=== PATIENT | female | born 1990 | race Caucasian/White ===

== ENCOUNTER 2021-08-30 11:27 | Outpatient (CLI) | payer OTHER, SELFPAY | END 2021-08-30 11:28 | disposition home or self-care (01) | LOC: LAB 11:27 | PROVIDERS: PCP Family Medicine; Visit Provider Family Medicine | DX: E03.9 Hypothyroidism, unspecified (principal) | CPT/HCPCS: 36415; 84443 ==

== ENCOUNTER 2022-02-13 11:49 | Outpatient (CLI) | payer OTHER, SELFPAY ==
[2022-02-13 13:43] LABS: Hemoglobin* 13.8 gm/dL (12.0-16.0)
[2022-02-13 14:05] LABS: Free T4 Free Thyroxine* 0.83 ng/dL (0.70-1.85)
== END 2022-02-13 11:50 | disposition home or self-care (01) ==
PROVIDERS: PCP Family Medicine; Visit Provider Family Medicine
DX: R53.83 Other fatigue (principal); E03.9 Hypothyroidism, unspecified
CPT/HCPCS: 84439; 84443; 85018

== ENCOUNTER 2022-03-13 11:17 | Outpatient (CLI) | payer OTHER, SELFPAY | END 2022-03-13 11:18 | disposition home or self-care (01) | PROVIDERS: PCP Family Medicine; Visit Provider Obstetrics & Gynecology | DX: E03.9 Hypothyroidism, unspecified (principal); Z12.4 Encounter for screening for malignant neoplasm of cervix | CPT/HCPCS: 84443 ==

== ENCOUNTER 2022-04-01 13:58 | Outpatient (CLI) | payer OTHER, SELFPAY ==
--- NOTE | 2022-04-01 14:00 | CRLHL7_ITS ---
For Patients: As a result of the Century Cures Act, medical imaging exams and procedure reports are released immediately into your electronic medical record. You may view this report before your referring provider. If you have questions, please contact your health care provider. INDICATION: Pelvic pain and pressure TECHNIQUE: Ultrasound pelvis transabdominal and transvaginal for better assessment or to better visualize the endometrium. Real time sonographic images with Spectral and color Doppler imaging of the ovaries were obtained. COMPARISON: None FINDINGS: Uterus: 8.4 centimeter x 3.3 centimeter x 5.0 centimeter cm. Normal echotexture of the myometrium. No masses. Endometrium: Transvaginal imaging was performed to better evaluate the endometrium. 3 millimeter in thickness. No sign of endometrial mass or fluid. Right ovary: 2.6 centimeter x 1.8 centimeter x 2.4 centimeter. No ovarian or adnexal masses. Normal arterial and venous blood flow. Left ovary: 4.0 centimeter x 1.8 centimeter x 2.1 centimeter. No ovarian or adnexal masses. Normal arterial and venous blood flow. Cul-de-sac: No significant free fluid. IMPRESSION: Unremarkable pelvic ultrasound. Dictated by Marquez Puckett MD @ 04/02/2022 8:29:35 AM (Electronically Signed)
== END 2022-04-01 13:59 | disposition home or self-care (01) ==
LOC: US 13:58
PROVIDERS: PCP Family Medicine; Visit Provider Obstetrics & Gynecology
DX: R10.2 Pelvic and perineal pain (principal); N92.0 Excessive and frequent menstruation with regular cycle
CPT/HCPCS: 76830; 76856

== ENCOUNTER 2022-06-25 09:51 | Outpatient (CLI) | payer OTHER, SELFPAY | END 2022-06-25 09:52 | disposition home or self-care (01) | LOC: NFLDREF 15:45 | PROVIDERS: PCP Family Medicine; Referring Provider Family Medicine; Visit Provider Family Medicine | DX: E03.9 Hypothyroidism, unspecified (principal) | CPT/HCPCS: 84443 ==

== ENCOUNTER 2022-12-20 09:30 | Outpatient (CLI) | payer MEDICARE, SELFPAY | END 2022-12-20 09:31 | disposition home or self-care (01) | LOC: NFLDREF 09:31 | PROVIDERS: PCP Family Medicine; Visit Provider Family Medicine | DX: E03.9 Hypothyroidism, unspecified (principal); N92.0 Excessive and frequent menstruation with regular cycle | CPT/HCPCS: 84439; 84443 ==

== ENCOUNTER 2023-03-13 11:15 | Outpatient (CLI) | payer MEDICARE, SELFPAY | END 2023-03-13 11:16 | disposition home or self-care (01) | LOC: NFLDREF 03-14 06:55 | PROVIDERS: PCP Family Medicine; Referring Provider Family Medicine; Visit Provider Family Medicine | DX: E03.9 Hypothyroidism, unspecified (principal) | CPT/HCPCS: 84443 ==

== ENCOUNTER 2023-09-16 15:12 | Outpatient (CLI) | payer MEDICARE, SELFPAY | END 2023-09-16 15:13 | disposition home or self-care (01) | PROVIDERS: PCP Family Medicine; Visit Provider Family Medicine | DX: E06.3 Autoimmune thyroiditis (principal); F43.21 Adjustment disorder with depressed mood | CPT/HCPCS: 80048; 84439; 84443; 85025; 86376 ==

== ENCOUNTER 2024-03-12 11:46 | Outpatient (CLI) | payer BC, SELFPAY | END 2024-03-12 11:47 | disposition home or self-care (01) | PROVIDERS: PCP Family Medicine; Visit Provider Family Medicine | DX: E06.3 Autoimmune thyroiditis (principal); Z01.818 Encounter for other preprocedural examination | CPT/HCPCS: 80048; 84439; 84443; 85025 ==

== ENCOUNTER 2024-10-01 08:14 | Outpatient (CLI) | payer BC, SELFPAY | END 2024-10-01 08:15 | disposition home or self-care (01) | LOC: NFLDREF 08:14 | PROVIDERS: PCP Family Medicine; Visit Provider Family Medicine | DX: E06.3 Autoimmune thyroiditis (principal) | CPT/HCPCS: 84443 ==

== ENCOUNTER 2025-01-13 10:47 | Outpatient (CLI) | payer BC, SELFPAY | END 2025-01-13 10:48 | disposition home or self-care (01) | PROVIDERS: PCP Family Medicine; Visit Provider Family Medicine | DX: R61 Generalized hyperhidrosis (principal) | CPT/HCPCS: 80048; 82670; 84146; 84439; 84443; 85025; 86480 ==